=== PATIENT | female | born 1935 | race Caucasian/White ===

== ENCOUNTER 2017-09-15 21:52 | Inpatient (IN) | payer MEDICARE ==
[2017-09-15] MEDS ORDERED: SODIUM CHLORIDE 0.9% 500 ML IV ONE (22:16)
[2017-09-15] MEDS ORDERED: ACETAMINOPHEN 500 MG TABLET PO ONE (22:18)
--- NOTE | 2017-09-15 22:36 | Emergency Department Record ---
History of Present Illness - General Chief Complaint: Fever Stated Complaint: FEVER,CHILLS Time Seen by Provider: 09/15/17 22:12 Source: Patient Mode of Arrival: Ambulatory Limitations: No limitations - History of Present Illness Initial Comments: pt started running a fever today and having chills. she denies cough, ap, problems w urination or other symptoms. 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 MD Complaint: Fever, Malaise, Weakness, Other (chills) Onset/Timin -: Hour(s) Associated Symptoms: Denies other symptoms Treatments Prior to Arrival: None - Related Data Home Medications Medication Instructions Recorded Confirmed Last Taken Aspirin [Aspirin EC] 81 mg PO DAILY 09/15/17 09/15/17 Unknown Fenofibrate Nanocrystallized 145 mg PO DAILY 09/15/17 09/15/17 Unknown [Tricor] Hydrochlorothiazide [Hctz] 25 mg PO DAILY 09/15/17 09/15/17 Unknown Metformin HCl [Metformin HCl ER] 1,000 mg PO DAILY 09/15/17 09/15/17 Unknown Metoprolol Succinate [Toprol Xl] 50 mg PO DAILY 09/15/17 09/15/17 Unknown [place]-3 Fatty Acids [[place]-3] 1,000 mg PO DAILY 09/15/17 09/15/17 Unknown Simvastatin [Zocor] 10 mg PO QHS 09/15/17 09/15/17 Unknown Allergies Allergy/AdvReac Type Severity Reaction Status Date / Time Latex, Natural Rubber Allergy RASH Verified 09/15/17 22:14 Travel Screening - Travel/Exposure Within Last 30 Days Have you traveled within the last 30 days?: No - Travel Symptoms Symptom Screening: Fever (GT 100.4) Review of Systems Reviewed: No additional complaints except as noted below Constitutional: Reports: As per HPI, Chills, Fever, Malaise. Denies: Night sweats, Weakness, Weight change Eyes: Reports: As per HPI. Denies: Eye discharge, Eye pain, Photophobia, Vision change ENT: Reports: As per HPI. Denies: Congestion, Dental pain, Ear pain, Epistaxis , Hearing loss, Throat pain Respiratory: Reports: As per HPI. Denies: Cough, Dyspnea, Hemoptysis, Stridor, Wheezes Cardiovascular: Reports: As per HPI. Denies: Arrhythmia, Chest pain, Dyspnea on exertion, Edema, Murmurs, Orthopnea, Palpitations, Paroxysmal nocturnal dyspnea, Rheumatic Fever, Syncope Endocrine: Reports: As per HPI. Denies: Fatigue, Heat or cold intolerance, Polydipsia, Polyuria Gastrointestinal: Reports: As per HPI. Denies: Abdominal pain, Constipation, Diarrhea, Hematemesis, Hematochezia, Melena, Nausea, Vomiting Genitourinary: Reports: As per HPI. Denies: Abnormal menses, Discharge, Dyspareunia, Dysuria, Frequency, Hematuria, Incontinence, Retention, Urgency Musculoskeletal: Reports: As per HPI. Denies: Arthralgia, Back pain, Gout, Joint swelling, Myalgia, Neck pain Skin: Reports: As per HPI. Denies: Bruising, Change in color, Change in hair/ nails, Lesions, Pruritus, Rash Neurological: Reports: As per HPI. Denies: Abnormal gait, Confusion, Headache, Numbness, Paresthesias, Seizure, Tingling, Tremors, Vertigo, Weakness Psychiatric: Reports: As per HPI. Denies: Anxiety, Auditory hallucinations, Depression, Homicidal thoughts, Suicidal thoughts, Visual hallucinations Hematological/Lymphatic: Reports: As per HPI. Denies: Anemia, Blood Clots, Easy bleeding, Easy bruising, Swollen glands Past Medical History - SOCIAL HISTORY Smoking Status: Never smoker Alcohol Use: None Drug Use: None - RESPIRATORY Hx Respiratory Disorders: No - CARDIOVASCULAR Hx Cardio Disorders: Yes Hx Hypertension: Yes Comment:: high cholesterol - NEURO Hx Neuro Disorders: No - GI Hx GI Disorders: No - Hx Genitourinary Disorders: Yes Hx UTI: Yes - ENDOCRINE Hx Endocrine Disorders: Yes Hx Diabetes: Yes - MUSCULOSKELETAL Hx Musculoskeletal Disorders: Yes Hx Arthritis: Yes - PSYCH Hx Psych Problems: No - HEMATOLOGY/ONCOLOGY Hx Hematology/Oncology Disorders: No Family Medical History Any Significant Family History?: No Family Hx Comment (NOT TO BE USED IN PLACE OF ITEMS BELOW): denies Physical Exam - General General Appearance: Alert, Oriented x3, Cooperative, Mild distress - Head Head exam: Normal inspection - Eye Eye exam: Normal appearance, PERRL, EOMI Pupils: Normal accommodation - ENT ENT exam: Normal exam, Mucous membranes dry, Normal external ear exam, Normal orophraynx Ear exam: Normal external inspection. negative: External canal tenderness Nasal Exam: Normal inspection. negative: Discharge, Sinus tenderness Mouth exam: Normal external inspection, Tongue normal Teeth exam: Normal inspection. negative: Dental caries Throat exam: Tonsillar erythema. negative: Tonsillar exudate - Neck Neck exam: Normal inspection, Full ROM. negative: Tenderness - Respiratory Respiratory exam: Normal lung sounds bilaterally. negative: Respiratory distress - Cardiovascular Cardiovascular Exam: Normal rhythm, Normal heart sounds, Tachycardia - GI/Abdominal GI/Abdominal exam: Soft, Normal bowel sounds. negative: Tenderness - Rectal Rectal exam: Deferred - exam: Deferred - Extremities Extremities exam: Normal inspection, Full ROM, Normal capillary refill. negative: Tenderness - Back Back exam: Reports: Normal inspection, Full ROM. Denies: Muscle spasm, Rash noted, Tenderness - Neurological Neurological exam: Alert, CN II-XII intact, Normal gait, Oriented X3 - Psychiatric Psychiatric exam: Normal affect, Normal mood - Skin Skin exam: Dry, Intact, Normal color, Warm Course Vital Signs 09/15/17 22:06 Temperature 102.9 F H Pulse Rate 121 H Respiratory 28 H Rate Blood Pressure 148/82 Pulse Ox 94 L Medical Decision Making - Lab Data Result diagrams: 09/15/17 22:13 09/15/17 22:13 Disposition Disposition: Admit Clinical Impression: Pyelonephritis Pneumonia Qualifiers: Pneumonia type: due to unspecified organism Laterality: bilateral Lung location : unspecified part of lung Qualified Code(s): J18.9 - Pneumonia, unspecified organism Disposition: Still a Patient at [facility] Decision to Admit: Admit from ER Decision to Admit Date: 09/16/17 Decision to Admit Time: 00:22 Forms: Patient Portal Access Quality - Quality Measures Quality Measures: N/A - Blood Pressure Screening Does Patient Have Any of the Following: No Blood Pressure Classification: Pre-Hypertensive BP Reading Systolic Measurement: 148 Diastolic Measurement: 82 Screening for High Blood Pressure: < Pre-Hypertensive BP, F/U Documented > [ [id number]] Pre-Hypertensive Follow-up Interventions: Follow-up with rescreen every year.
[2017-09-15 22:37] LABS: BASO % 0.4 % (0-6); EOS % 1.3 % (0-6); GRAN % 72.8 % (47-80); HEMATOCRIT 37.7 % (35.0-47.0); HEMOGLOBIN 12.1 gm/dl (11.6-16.0); LYMPH % 24.6 % (16-45); MEAN CELL VOLUME 85.7 fl (81-97); MEAN CORPUSCULAR HEMOGLOBIN 27.5 pg (27-33); MEAN CORPUSCULAR HGB CONC 32.1 g/dl (32-36); MEAN PLATELET VOLUME 10.7 fl (7.4-10.4); MONO % 0.9 % (0-9); PLATELET COUNT 259 K/uL (130-400); RED CELL DISTRIBUTION WIDTH 13.4 % (11.5-14.5); WHITE BLOOD COUNT W/O DIFF 2.3 K/uL (4.2-12.2)
[2017-09-15 22:53] LABS: URINE APPEARANCE CLEAR; URINE BILIRUBIN NEGATIVE (NEGATIVE); URINE BLOOD TRACE-I (NEGATIVE); URINE COLOR YELLOW; URINE GLUCOSE (UA) NEGATIVE (NEGATIVE); URINE KETONE NEGATIVE (NEGATIVE); URINE LEUKOCYTE ESTERASE LARGE (NEGATIVE); URINE NITRITE POSITIVE (NEGATIVE); URINE PROTEIN NEGATIVE (NEGATIVE)
[2017-09-15 23:24] LABS: INFLUENZA A NEGATIVE (NEGATIVE); INFLUENZA B NEGATIVE (NEGATIVE)
[2017-09-15 23:29] LABS: ALB/GLOB RATIO 1.7 (1.1-1.8); ALKALINE PHOSPHATASE 64 U/L (35-104); ALT/SGPT 23 U/L (<33); AST/SGOT 53 U/L (10.0-35.0); BLOOD UREA NITROGEN 19 mg/dL (8-23); CREATININE 0.9 mg/dL (0.5-0.9); EST GLOMERULAR FILTRATION RATE > 60 mL/min; GLUCOSE,RANDOM 123 mg/dL (74-109); TOTAL PROTEIN 6.4 g/dL (6.6-8.7)
[2017-09-15 23:47] LABS: URINE RBC 0 - 2 (NONE SEEN)
[2017-09-15 23:48] LABS: URINE BACTERIA 4+; URINE EPITHELIAL CELLS NONE SEEN (FEW); URINE WBC 16 - 20 (0-2/hpf)
[2017-09-16] MEDS ORDERED: CIPROFLOXACIN LACTATE/D5W 400 MG/200 ML BAG IVPB ONE (00:03)
[2017-09-16] MEDS ORDERED: ACETAMINOPHEN 500 MG TABLET PO PRN (00:30)
[2017-09-16] MEDS: SIMVASTATIN 10MG TABLET PO SCH ×2 (01:23→21:53)
[2017-09-16 08:39] LABS: HEMATOCRIT 33.9 % (35.0-47.0); MEAN CORPUSCULAR HEMOGLOBIN 27.9 pg (27-33); MEAN CORPUSCULAR HGB CONC 32.4 g/dl (32-36); MEAN PLATELET VOLUME 10.4 fl (7.4-10.4); PLATELET COUNT 238 K/uL (130-400); RED BLOOD COUNT 3.94 M/uL (3.80-5.40); RED CELL DISTRIBUTION WIDTH 13.6 % (11.5-14.5)
--- NOTE | 2017-09-16 08:39 | History & Physical ---
History of Present Illness - Date of Service Date of Service for History & Physical: 09/16/17 - History of Present Illness Admitting Diagnosis: pyelonephritis, lactic acidosis, and pneumonia History of Present Illness: 82 yo female admitted for PNA and pyelonephritis. PMH DM, HTN, and hyperlipidemia. Pt denies any symptoms prior to onset of fever and chills. 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 No known ill contacts, not around infants or young children. Pt presented self to ER for c/o fever and chills but denied symptoms of ST, cough, CP, AP, or dysuria. Negative flu and strep screening. 102.9F, HR 121, 148/82, RR 28, 94% RA, repeat VS 1 hr later temp 99.8 after 500cc bolus and tylenol, then 2 hours later 99.4, HR 100, BP 119/70, RR 18, 95% RA UA pos nitrites, leuk large, 4+ bacteria, WBC 16-20, no RBC, urine culture pending WBC 2.3, Hgb 12.1, Hct 37.7, Plt 259 Na 146, K 3.7, CL 103, CO2 24, BUN 19, creatinine 0.9, GFR >60, glucose 123, lactic acid 3.4 CXR (no report, no audio clip available) Pt given 500cc NS bolus, cipro 400mg IVPB and 1gm tylenol POC Repeat labs ordered this AM (CBC, bmp, lactic acid) NS IVF @83 started, continue to encourage PO intact. Continue Cipro 400mg q12 hr. Pt resting comfortably in bed, a&ox4. Continues to deny dysuria symptoms, no cough, no SOB, no pain. Ambulating to toilet without difficulty. Awaiting CXR official read. PCP Rachel Travel Screening - Travel/Exposure Within Last 30 Days Have you traveled within the last 30 days?: No - Travel/Exposure Within Last Year Have you traveled outside the [place] in the last year?: No - Additonal Travel Details Have you been exposed to anyone with a communicable illness?: No - Travel Symptoms Symptom Screening: Fever (GT 100.4) Review of Systems Constitutional: Reports: As per HPI, Chills, Fever, Malaise. Denies: Night sweats, Weakness, Weight change Eyes: Reports: As per HPI. Denies: Eye discharge, Eye pain, Photophobia, Vision change ENT: Reports: As per HPI. Denies: Congestion, Dental pain, Ear pain, Epistaxis , Hearing loss, Throat pain Respiratory: Reports: As per HPI. Denies: Cough, Dyspnea, Hemoptysis, Stridor, Wheezes Cardiovascular: Reports: As per HPI. Denies: Arrhythmia, Chest pain, Dyspnea on exertion, Edema, Murmurs, Orthopnea, Palpitations, Paroxysmal nocturnal dyspnea, Rheumatic Fever, Syncope Endocrine: Reports: As per HPI. Denies: Fatigue, Heat or cold intolerance, Polydipsia, Polyuria Gastrointestinal: Reports: As per HPI. Denies: Abdominal pain, Constipation, Diarrhea, Hematemesis, Hematochezia, Melena, Nausea, Vomiting Genitourinary: Reports: As per HPI. Denies: Abnormal menses, Discharge, Dyspareunia, Dysuria, Frequency, Hematuria, Incontinence, Retention, Urgency Musculoskeletal: Reports: As per HPI. Denies: Arthralgia, Back pain, Gout, Joint swelling, Myalgia, Neck pain Skin: Reports: As per HPI. Denies: Bruising, Change in color, Change in hair/ nails, Lesions, Pruritus, Rash Neurological: Reports: As per HPI. Denies: Abnormal gait, Confusion, Headache, Numbness, Paresthesias, Seizure, Tingling, Tremors, Vertigo, Weakness Psychiatric: Reports: As per HPI. Denies: Anxiety, Auditory hallucinations, Depression, Homicidal thoughts, Suicidal thoughts, Visual hallucinations Hematological/Lymphatic: Reports: As per HPI. Denies: Anemia, Blood Clots, Easy bleeding, Easy bruising, Swollen glands Past Medical History - SOCIAL HISTORY Smoking Status: Never smoker Alcohol Use: None Drug Use: None - RESPIRATORY Hx Respiratory Disorders: No - CARDIOVASCULAR Hx Cardio Disorders: Yes Hx Hypertension: Yes Comment:: high cholesterol - NEURO Hx Neuro Disorders: No - GI Hx GI Disorders: No - Hx Genitourinary Disorders: Yes Hx UTI: Yes - ENDOCRINE Hx Endocrine Disorders: Yes Hx Diabetes: Yes - MUSCULOSKELETAL Hx Musculoskeletal Disorders: Yes Hx Arthritis: Yes - PSYCH Hx Psych Problems: No - HEMATOLOGY/ONCOLOGY Hx Hematology/Oncology Disorders: No Family Medical History Any Significant Family History?: No Family Hx Comment (NOT TO BE USED IN PLACE OF ITEMS BELOW): denies H&P Meds/Allergies - Allergies Allergies: Allergies Allergy/AdvReac Type Severity Reaction Status Date / Time Latex, Natural Rubber Allergy RASH Verified 09/15/17 22:14 - Home Medications Home Medications Medication Instructions Recorded Confirmed Last Taken Aspirin [Aspirin EC] 81 mg PO DAILY 09/15/17 09/15/17 Unknown Fenofibrate Nanocrystallized 145 mg PO DAILY 09/15/17 09/15/17 Unknown [Tricor] Hydrochlorothiazide [Hctz] 25 mg PO DAILY 09/15/17 09/15/17 Unknown Metformin HCl [Metformin HCl ER] 1,000 mg PO DAILY 09/15/17 09/15/17 Unknown Metoprolol Succinate [Toprol Xl] 50 mg PO DAILY 09/15/17 09/15/17 Unknown [place]-3 Fatty Acids [[place]-3] 1,000 mg PO DAILY 09/15/17 09/15/17 Unknown Simvastatin [Zocor] 10 mg PO QHS 09/15/17 09/15/17 Unknown - Active Medications Active Medications: Current Medications Acetaminophen (Tylenol 500mg Tab) 1,000 mg PO Q6H PRN PRN Reason: PAIN - MILD(1-4)/FEVER Aspirin (Ecotrin (Ec)) 81 mg PO DAILY [facility] Hydrochlorothiazide (Hctz 25mg) 25 mg PO DAILY [facility] Ciprofloxacin Lactate (Cipro) 400 mg in 200 mls @ 200 mls/hr IVPB Q12H [facility] Stop: 09/21/17 12:01 Metformin HCl (Glucophage Xr) 1,000 mg PO DAILY [facility] Metoprolol Succinate (Toprol Xl) 50 mg PO DAILY [facility] Non-Formulary Medication (Fenofibrate Nanocrystallized [Tricor]) 145 mg PO DAILY [facility] Simvastatin (Zocor) 10 mg PO QHS [facility] Last Admin: 09/16/17 01:23 Dose: Not Given Physical Exam - Vital Signs Vital Signs: Vital Signs - Last 24 Hrs Temp Pulse Pulse Resp BP BP BP 09/16/17 06:00 98.7 F 96 H 20 104/71 09/16/17 01:13 102 H 20 09/16/17 00:50 98.4 F 102 H 20 109/67 09/16/17 00:40 99.4 F 100 H 18 119/70 09/16/17 00:33 102 H 24 104/67 09/15/17 23:05 99.8 F H 09/15/17 22:06 102.9 F H 121 H 28 H 148/82 Pulse Ox 09/16/17 06:00 96 09/16/17 01:13 09/16/17 00:50 95 09/16/17 00:40 95 09/16/17 00:33 94 L 09/15/17 23:05 09/15/17 22:06 94 L - General General Appearance: Alert, Oriented x3, Cooperative, No acute distress Limitations: No limitations - Head Head exam: Normal inspection - Eye Eye exam: Normal appearance, PERRL, EOMI Pupils: Normal accommodation - ENT ENT exam: Normal exam, Mucous membranes dry, Normal external ear exam, Normal orophraynx Ear exam: Normal external inspection. negative: External canal tenderness Nasal Exam: Normal inspection. negative: Discharge, Sinus tenderness Mouth exam: Normal external inspection, Tongue normal Teeth exam: Normal inspection. negative: Dental caries Throat exam: Tonsillar erythema. negative: Tonsillar exudate - Neck Neck exam: Normal inspection, Full ROM. negative: Tenderness - Respiratory Respiratory exam: Normal lung sounds bilaterally. negative: Respiratory distress - Cardiovascular Cardiovascular Exam: Regular rate, Normal rhythm, Normal heart sounds Peripheral Pulses: 2+: Radial (R), Radial (L), Dorsalis Pedis (R), Dorsalis Pedis (L) - GI/Abdominal GI/Abdominal exam: Soft, Normal bowel sounds. negative: Tenderness - Rectal Rectal exam: Deferred - exam: Deferred - Extremities Extremities exam: Normal inspection, Full ROM, Normal capillary refill. negative: Tenderness - Back Back exam: Reports: Normal inspection, Full ROM. Denies: CVA tenderness (R), CVA tenderness (L), Muscle spasm, Rash noted, Tenderness - Neurological Neurological exam: Alert, CN II-XII intact, Normal gait, Oriented X3 - Psychiatric Psychiatric exam: Normal affect, Normal mood - Skin Skin exam: Dry, Intact, Normal color, Warm Results - Labs Result Diagrams: 09/15/17 22:13 09/15/17 22:13 Labs Last 24 Hours: Laboratory Results - last 24 hr 09/15/17 09/15/17 09/15/17 10:50 10:50 22:13 WBC 2.3 L RBC 4.40 Hgb 12.1 Hct 37.7 MCV 85.7 MCH 27.5 MCHC 32.1 RDW 13.4 Plt Count 259 MPV 10.7 H Gran % 72.8 Lymphocytes % 24.6 Monocytes % 0.9 Eosinophils % 1.3 Basophils % 0.4 ESR Sodium Potassium Chloride Carbon Dioxide Anion Gap BUN Creatinine Estimated GFR Random Glucose Lactic Acid Calcium Total Bilirubin AST ALT Alkaline Phosphatase Total Protein Albumin Globulin Albumin/Globulin Ratio Urine Color Urine Appearance Urine pH Ur Specific [place] Urine Protein Urine Glucose (UA) Urine Ketones Urine Blood Urine Nitrite Urine Bilirubin Urine Urobilinogen Ur Leukocyte Esterase Urine RBC Urine WBC Ur Epithelial Cells Urine Bacteria Influenza Type A Ag Negative Influenza Type B Ag Negative Group A Strep Screen Negative 09/15/17 09/15/17 09/15/17 22:13 22:13 22:16 WBC RBC Hgb Hct MCV MCH MCHC RDW Plt Count MPV Gran % Lymphocytes % Monocytes % Eosinophils % Basophils % ESR 5 Sodium 146 H Potassium 3.7 Chloride 103 Carbon Dioxide 24.0 Anion Gap 19.0 H BUN 19 Creatinine 0.9 Estimated GFR > 60 Random Glucose 123 H Lactic Acid Cancelled Calcium 9.6 Total Bilirubin 0.60 AST 53 H ALT 23 Alkaline Phosphatase 64 Total Protein 6.4 L Albumin 4.0 Globulin 2.4 Albumin/Globulin Ratio 1.7 Urine Color Yellow Urine Appearance Clear Urine pH 7.0 Ur Specific [place] 1.010 Urine Protein Negative Urine Glucose (UA) Negative Urine Ketones Negative Urine Blood Trace-i Urine Nitrite Positive H Urine Bilirubin Negative Urine Urobilinogen 1.0 Ur Leukocyte Esterase Large H Urine RBC 0 - 2 Urine WBC 16 - 20 Ur Epithelial Cells None seen Urine Bacteria 4+ Influenza Type A Ag Influenza Type B Ag Group A Strep Screen 09/15/17 22:37 WBC RBC Hgb Hct MCV MCH MCHC RDW Plt Count MPV Gran % Lymphocytes % Monocytes % Eosinophils % Basophils % ESR Sodium Potassium Chloride Carbon Dioxide Anion Gap BUN Creatinine Estimated GFR Random Glucose Lactic Acid 3.4 H Calcium Total Bilirubin AST ALT Alkaline Phosphatase Total Protein Albumin Globulin Albumin/Globulin Ratio Urine Color Urine Appearance Urine pH Ur Specific [place] Urine Protein Urine Glucose (UA) Urine Ketones Urine Blood Urine Nitrite Urine Bilirubin Urine Urobilinogen Ur Leukocyte Esterase Urine RBC Urine WBC Ur Epithelial Cells Urine Bacteria Influenza Type A Ag Influenza Type B Ag Group A Strep Screen - Imaging and Cardiology Chest x-ray Status: Pending VTE H&P Assessment - Risk for VTE Risk for VTE: Yes Risk Level: Moderate Risk Assessment Date: 09/16/17 Risk Assessment Time: 08:44 VTE Orders Placed or Will Be Placed: Yes Plan - Inpatient Certification Inpatient Certification: Admit to inpatient care: Based on my medical assessment, after consideration of patient's risk factors (age, co-morbidities and patient presenting symptoms and acuity), I expect that this patient will remain in the hospital greater than or equal to two midnights and that the services needed warrant inpatient care because: Patient Risk Factors: pyleonephritis, PNA, and lactic acidosis, req IV ABX, Estimated length of stay: The patient may reasonably be expected to be discharged or transferred to a hospital within 96 hours after admission to [facility]. Services needed: IVF, IV abx, repeat labs Post hospital care (if known): [] I certify that my determination is in accordance with my understanding of Medicare requirements for reasonable and necessary inpatient services. 09/16/17 08:44 - Detailed Diagnosis and Plan (1) Pyelonephritis Current Visit: Yes Status: Acute Base Code: N12 - TUBULO-INTERSTITIAL NEPHRITIS, NOT SPCF ACUTE OR CHRONIC Comment: 09/16/17 -UA positive, culture pending -Cipro 400mg q12 -IVF NS@83 -repeat CBC, BMP, lactic acid (2) Pneumonia Current Visit: Yes Status: Acute Qualifiers: Pneumonia type: due to unspecified organism Laterality: bilateral Lung location: unspecified part of lung Qualified Code(s): J18.9 - Pneumonia, unspecified organism Base Code: J18.9 - PNEUMONIA, UNSPECIFIED ORGANISM Comment: 09/16/17 -suspected PNA based on CXR reading from ER, no c/o s/s -co-infection with pyelonephritis -no cough, lungs clear gumaro, no known sick contacts -Continue with Cipro 400mg IVPB (current pyleo tx) (3) Full code status Current Visit: Yes Status: Acute Base Code: Z78.9 - OTHER SPECIFIED HEALTH STATUS Comment: 09/16/17 -full code status (4) DVT prophylaxis Current Visit: Yes Status: Acute Base Code: NXA2163 - Comment: 09/16/17 -lovenox 40mg SQ DVT proph (5) Lactic acid acidosis Current Visit: Yes Status: Acute Base Code: E87.2 - ACIDOSIS Comment: 09/16 -lactic acid 3.4 at admission, repeat 3.1 -IVF started this AM, will repeat in the AM -holding metformin r/t decreased RFT and continued elevated lactic acid
[2017-09-16] MEDS: 0.9 % SODIUM CHLORIDE 1000ML 1,000 ML IV PRN ×2 (09:00→21:50)
[2017-09-16] MEDS: ASPIRIN 81 MG TABEC PO SCH (09:27)
[2017-09-16] MEDS: HYDROCHLOROTHIAZIDE 25 MG TABLET PO SCH (09:27)
[2017-09-16] MEDS: METFORMIN ER HCL 500 MG TAB.ER.24H PO SCH (09:27)
[2017-09-16] MEDS: METOPROLOL SUCC 50 MG TABLET PO SCH (09:27)
[2017-09-16] MEDS: ENOXAPARIN 40 MG/0.4 ML SYR SQ SCH (09:29)
[2017-09-16] MEDS ORDERED: FENOFIBRATE NANOCRYSTALLIZED 145 MG PO SCH (10:00)
[2017-09-16] MEDS: CIPROFLOXACIN LACTATE/D5W 400 MG/200 ML BAG IVPB SCH ×2 (12:11→23:15)
[2017-09-17 08:24] LABS: HEMOGLOBIN 10.7 gm/dl (11.6-16.0); MEAN CELL VOLUME 86.2 fl (81-97); MEAN CORPUSCULAR HEMOGLOBIN 27.9 pg (27-33); MEAN CORPUSCULAR HGB CONC 32.4 g/dl (32-36); MEAN PLATELET VOLUME 10.5 fl (7.4-10.4); PLATELET COUNT 213 K/uL (130-400); RED BLOOD COUNT 3.83 M/uL (3.80-5.40); RED CELL DISTRIBUTION WIDTH 13.8 % (11.5-14.5); WHITE BLOOD COUNT W/O DIFF 12.9 K/uL (4.2-12.2)
[2017-09-17 08:45] LABS: BLOOD UREA NITROGEN 18 mg/dL (8-23); CREATININE 0.9 mg/dL (0.5-0.9); EST GLOMERULAR FILTRATION RATE > 60 mL/min; GLUCOSE,RANDOM 124 mg/dL (74-109)
--- NOTE | 2017-09-17 09:52 | Physician Progress Note ---
Subjective - Date Date of Physician Progress Note: 09/17/17 Objective - Vital Signs Vital Signs: Vital Signs - Last 24 Hrs Temp Pulse Resp BP Pulse Ox 09/17/17 08:25 87 16 09/17/17 05:53 98.2 F 87 16 126/73 09/16/17 21:27 98.0 F 79 16 127/59 95 09/16/17 21:00 79 16 09/16/17 18:00 98.3 F 84 16 122/74 97 09/16/17 13:17 98.1 F 73 18 102/61 97 - General General Appearance: Alert, Oriented x3, Cooperative, No acute distress Limitations: No limitations - Head Head exam: Normal inspection - Eye Eye exam: Normal appearance, PERRL, EOMI Pupils: Normal accommodation - ENT ENT exam: Normal exam, Mucous membranes dry, Normal external ear exam, Normal orophraynx Ear exam: Normal external inspection. negative: External canal tenderness Nasal Exam: Normal inspection. negative: Discharge, Sinus tenderness Mouth exam: Normal external inspection, Tongue normal Teeth exam: Normal inspection. negative: Dental caries Throat exam: Tonsillar erythema. negative: Tonsillar exudate - Neck Neck exam: Normal inspection, Full ROM. negative: Tenderness - Respiratory Respiratory exam: Normal lung sounds bilaterally. negative: Respiratory distress - Cardiovascular Cardiovascular Exam: Regular rate, Normal rhythm, Normal heart sounds Peripheral Pulses: 2+: Radial (R), Radial (L), Dorsalis Pedis (R), Dorsalis Pedis (L) - GI/Abdominal GI/Abdominal exam: Soft, Normal bowel sounds. negative: Tenderness - Rectal Rectal exam: Deferred - exam: Deferred - Extremities Extremities exam: Normal inspection, Full ROM, Normal capillary refill. negative: Tenderness - Back Back exam: Reports: Normal inspection, Full ROM. Denies: CVA tenderness (R), CVA tenderness (L), Muscle spasm, Rash noted, Tenderness - Neurological Neurological exam: Alert, CN II-XII intact, Normal gait, Oriented X3 - Psychiatric Psychiatric exam: Normal affect, Normal mood - Skin Skin exam: Dry, Intact, Normal color, Warm Assessment and Plan - Assessment and Plan (1) Pyelonephritis Current Visit: Yes Status: Acute Base Code: N12 - TUBULO-INTERSTITIAL NEPHRITIS, NOT SPCF ACUTE OR CHRONIC Comment: 09/16/17 -UA positive, culture pending -Cipro 400mg q12 -IVF NS@83 -repeat CBC, BMP, lactic acid 09/17/17 -blood culture preliminary results, gram negative rods (suspicitous of E Coli sepsis) -changing ABX from cipro to Rocephin 1gm BID for better coverage as sensitivity pending -urine culture still pending, will continue to monitor for results -labs have improved, WBC 12.1, lactic acid 0.9, RFT normal -continue ABX and IVF slowly -possible d/c in the AM if continuing to improve -pt req daughter Christi be updated on POC, Christi notified [phone] per pt req (2) Lactic acid acidosis Current Visit: Yes Status: Acute Base Code: E87.2 - ACIDOSIS Comment: 09/16 -lactic acid 3.4 at admission, repeat 3.1 -IVF started this AM, will repeat in the AM -holding metformin r/t decreased RFT and continued elevated lactic acid 09/17/17 -lactic acid 0.9 -IVF continue until tomorow, pt tolerating with no edema noted -preliminary BC gram neg lyndsay, suspicious of E Coli sepsis (3) Pneumonia Current Visit: Yes Status: Inactive Qualifiers: Pneumonia type: due to unspecified organism Laterality: bilateral Lung location: unspecified part of lung Qualified Code(s): J18.9 - Pneumonia, unspecified organism Base Code: J18.9 - PNEUMONIA, UNSPECIFIED ORGANISM Comment: 09/16/17 -suspected PNA based on CXR reading from ER, no c/o s/s -co-infection with pyelonephritis -no cough, lungs clear gumaro, no known sick contacts -Continue with Cipro 400mg IVPB (current pyleo tx) (4) Full code status Current Visit: Yes Status: Acute Base Code: Z78.9 - OTHER SPECIFIED HEALTH STATUS Comment: 09/16/17 -full code status (5) DVT prophylaxis Current Visit: Yes Status: Acute Base Code: OHC8596 - Comment: 09/17/17 -lovenox 40mg SQ DVT proph Results - Labs Result Diagrams: 09/17/17 08:15 09/17/17 08:15 Labs Last 24 Hours: Laboratory Results - last 24 hr 09/16/17 09/16/17 09/17/17 11:30 22:48 07:30 WBC RBC Hgb Hct MCV MCH MCHC RDW Plt Count MPV Neutrophils % Band Neutrophils % Eosinophils % Basophils % Lymphocytes Monocytes Eosinophil Count Sodium Potassium Chloride Carbon Dioxide Anion Gap BUN Creatinine Estimated GFR POC Glucose 156 H 140 H 113 H Random Glucose Lactic Acid Calcium 09/17/1718 09/17/17 08:15 08:15 08:15 WBC 12.9 H RBC 3.83 Hgb 10.7 L Hct 33.0 L MCV 86.2 MCH 27.9 MCHC 32.4 RDW 13.8 Plt Count 213 MPV 10.5 H Neutrophils % 80.0 Band Neutrophils % 3.0 Eosinophils % Not Reportable Basophils % Not Reportable Lymphocytes 11.0 L Monocytes 5.0 Eosinophil Count 1.0 Sodium 141 Potassium 3.6 Chloride 102 Carbon Dioxide 23.0 Anion Gap 16.0 BUN 18 Creatinine 0.9 Estimated GFR > 60 POC Glucose Random Glucose 124 H Lactic Acid Cancelled 0.9 Calcium 8.9 DVT/PE Assessment - Risk for VTE Risk for VTE: No Risk Level: Moderate Risk Assessment Date: 09/16/17 Risk Assessment Time: 08:44 VTE Orders Placed or Will Be Placed: Yes - Active Medicaitons Current Medications: Current Medications Acetaminophen (Tylenol 500mg Tab) 1,000 mg PO Q6H PRN PRN Reason: PAIN - MILD(1-4)/FEVER Aspirin (Ecotrin (Ec)) 81 mg PO DAILY [facility] Last Admin: 09/16/17 09:27 Dose: 81 mg Enoxaparin Sodium (Lovenox) 40 mg SQ DAILY [facility] Last Admin: 09/16/17 09:29 Dose: 40 mg Hydrochlorothiazide (Hctz 25mg) 25 mg PO DAILY [facility] Last Admin: 09/16/17 09:27 Dose: 25 mg Sodium Chloride () 1,000 mls @ 83 mls/hr IV .Q12H3M PRN PRN Reason: LARGE VOLUME IV Last Admin: 09/16/17 21:50 Dose: 83 mls/hr Ceftriaxone Sodium 1 gm/ (Sodium Chloride) 100 mls @ 200 mls/hr IVPB Q12H [facility] Stop: 09/22/17 09:31 Metformin HCl (Glucophage Xr) 1,000 mg PO DAILY [facility] Last Admin: 09/16/17 09:27 Dose: Not Given Metoprolol Succinate (Toprol Xl) 50 mg PO DAILY [facility] Last Admin: 09/16/17 09:27 Dose: 50 mg Simvastatin (Zocor) 10 mg PO QHS [facility] Last Admin: 09/16/17 21:53 Dose: 10 mg AMI Plan - Labs Result Diagrams: 09/17/17 08:15 09/17/17 08:15
[2017-09-17] MEDS: CEFTRIAXONE SODIUM 1 GM in 0.9 % SODIUM CHLORIDE 100ML 100 ML IVPB SCH ×2 (10:02→21:42)
[2017-09-17] MEDS: HYDROCHLOROTHIAZIDE 25 MG TABLET PO SCH (10:03)
[2017-09-17] MEDS: ASPIRIN 81 MG TABEC PO SCH (10:03)
[2017-09-17] MEDS: METFORMIN ER HCL 500 MG TAB.ER.24H PO SCH (10:03)
[2017-09-17] MEDS: METOPROLOL SUCC 50 MG TABLET PO SCH (10:03)
[2017-09-17] MEDS: ENOXAPARIN 40 MG/0.4 ML SYR SQ SCH (10:04)
[2017-09-17] MEDS: 0.9 % SODIUM CHLORIDE 1000ML 1,000 ML IV PRN (12:41)
[2017-09-17] MEDS: SIMVASTATIN 10MG TABLET PO SCH (21:42)
[2017-09-18] MEDS: 0.9 % SODIUM CHLORIDE 1000ML 1,000 ML IV PRN (00:17)
[2017-09-18] MEDS: CEFTRIAXONE SODIUM 1 GM in 0.9 % SODIUM CHLORIDE 100ML 100 ML IVPB SCH (09:09)
[2017-09-18] MEDS: ENOXAPARIN 40 MG/0.4 ML SYR SQ SCH (09:13)
[2017-09-18] MEDS: METOPROLOL SUCC 50 MG TABLET PO SCH (09:14)
[2017-09-18] MEDS: HYDROCHLOROTHIAZIDE 25 MG TABLET PO SCH (09:14)
[2017-09-18] MEDS: ASPIRIN 81 MG TABEC PO SCH (09:14)
[2017-09-18 09:50] LABS: BASO % 0.3 % (0-6); EOS % 4.9 % (0-6); GRAN % 60.5 % (47-80); HEMATOCRIT 32.7 % (35.0-47.0); HEMOGLOBIN 10.6 gm/dl (11.6-16.0); LYMPH % 26.3 % (16-45); MEAN CELL VOLUME 86.1 fl (81-97); MEAN CORPUSCULAR HGB CONC 32.4 g/dl (32-36); MEAN PLATELET VOLUME 10.6 fl (7.4-10.4); PLATELET COUNT 218 K/uL (130-400); RED CELL DISTRIBUTION WIDTH 13.6 % (11.5-14.5); WHITE BLOOD COUNT W/O DIFF 7.2 K/uL (4.2-12.2)
[2017-09-18 09:53] LABS: MEAN CORPUSCULAR HEMOGLOBIN 27.8 pg (27-33)
[2017-09-18 10:07] LABS: BLOOD UREA NITROGEN 15 mg/dL (8-23); CREATININE 0.7 mg/dL (0.5-0.9); EST GLOMERULAR FILTRATION RATE > 60 mL/min; GLUCOSE,RANDOM 173 mg/dL (74-109)
--- NOTE | 2017-09-18 10:29 | Discharge Summary ---
Providers Discharge Summary Date: 09/18/17 Date of admission: 09/16/17 00:36 Expected Date of Discharge: 09/18/17 Attending physician: VENANCIO BRUNNER Primary care physician: Rachel Physical Exam - Vital Signs Vital Signs: Vital Signs - Last 24 Hrs Temp Pulse Resp BP Pulse Ox 09/18/17 09:00 80 18 09/18/17 08:53 98.1 F 91 H 18 136/75 95 09/18/17 06:00 98.9 F 87 20 146/70 95 09/18/17 02:00 79 20 138/87 95 09/17/17 21:00 98.7 F 80 20 157/79 97 09/17/17 14:00 98.6 F 77 18 137/72 97 - General General Appearance: Alert, Oriented x3, Cooperative, No acute distress Limitations: No limitations - Head Head exam: Normal inspection - Eye Eye exam: Normal appearance, PERRL, EOMI Pupils: Normal accommodation - ENT ENT exam: Normal exam, Mucous membranes dry, Normal external ear exam, Normal orophraynx Ear exam: Normal external inspection. negative: External canal tenderness Nasal Exam: Normal inspection. negative: Discharge, Sinus tenderness Mouth exam: Normal external inspection, Tongue normal Teeth exam: Normal inspection. negative: Dental caries Throat exam: Tonsillar erythema. negative: Tonsillar exudate - Neck Neck exam: Normal inspection, Full ROM. negative: Tenderness - Respiratory Respiratory exam: Normal lung sounds bilaterally. negative: Respiratory distress - Cardiovascular Cardiovascular Exam: Regular rate, Normal rhythm, Normal heart sounds, Systolic murmur Peripheral Pulses: 2+: Radial (R), Radial (L), Dorsalis Pedis (R), Dorsalis Pedis (L) - GI/Abdominal GI/Abdominal exam: Soft, Normal bowel sounds. negative: Tenderness - Rectal Rectal exam: Deferred - exam: Deferred - Extremities Extremities exam: Normal inspection, Full ROM, Normal capillary refill. negative: Tenderness - Back Back exam: Reports: Normal inspection, Full ROM. Denies: CVA tenderness (R), CVA tenderness (L), Muscle spasm, Rash noted, Tenderness - Neurological Neurological exam: Alert, CN II-XII intact, Normal gait, Oriented X3 - Psychiatric Psychiatric exam: Normal affect, Normal mood - Skin Skin exam: Dry, Intact, Normal color, Warm Hospitalization - Hospitalization Admission Diagnosis: pyelonephritis, lactic acidosis, and (pneumonia-ruled out) - Problem List/Discharge Diagnosis (1) Pyelonephritis Current Visit: Yes Status: Acute Base Code: N12 - TUBULO-INTERSTITIAL NEPHRITIS, NOT SPCF ACUTE OR CHRONIC Comment: 09/16/17 -UA positive, culture pending -Cipro 400mg q12 -IVF NS@83 -repeat CBC, BMP, lactic acid 09/17/17 -blood culture preliminary results, gram negative rods (suspicitous of E Coli sepsis) -changing ABX from cipro to Rocephin 1gm BID for better coverage as sensitivity pending -urine culture still pending, will continue to monitor for results -labs have improved, WBC 12.1, lactic acid 0.9, RFT normal -continue ABX and IVF slowly -possible d/c in the AM if continuing to improve -pt req daughter Christi be updated on POC, Christi notified [phone] per pt req 09/18/17 -WBC 7.2 -pt urine appears clear, still asymptomatic of dysuria -pt denies pain or discomfot -tolerating Po intake well, steady gait -d/c today (2) Lactic acid acidosis Current Visit: Yes Status: Acute Base Code: E87.2 - ACIDOSIS Comment: 09/16 -lactic acid 3.4 at admission, repeat 3.1 -IVF started this AM, will repeat in the AM -holding metformin r/t decreased RFT and continued elevated lactic acid 09/17/17 -lactic acid 0.9 -IVF continue until tomorow, pt tolerating with no edema noted -preliminary BC gram neg lyndsay, suspicious of E Coli sepsis 09/18/17 -d/c IVF -pt can return to her metformin at home -f/u with PCP (appt already made) (3) Full code status Current Visit: Yes Status: Acute Base Code: Z78.9 - OTHER SPECIFIED HEALTH STATUS Comment: 09/16/17 -full code status (4) DVT prophylaxis Current Visit: Yes Status: Acute Base Code: [id number] - Comment: 09/17/17 -lovenox 40mg SQ DVT proph - Hospitalization Course Hospital Course: 82 yo female admitted for PNA and pyelonephritis. PMH DM, HTN, and hyperlipidemia. Pt denies any symptoms prior to onset of fever and chills. 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 No known ill contacts, not around infants or young children. Pt presented self to ER for c/o fever and chills but denied symptoms of ST, cough, CP, AP, or dysuria. Negative flu and strep screening. 102.9F, HR 121, 148/82, RR 28, 94% RA, repeat VS 1 hr later temp 99.8 after 500cc bolus and tylenol, then 2 hours later 99.4, HR 100, BP 119/70, RR 18, 95% RA UA pos nitrites, leuk large, 4+ bacteria, WBC 16-20, no RBC, urine culture pending WBC 2.3, Hgb 12.1, Hct 37.7, Plt 259 Na 146, K 3.7, CL 103, CO2 24, BUN 19, creatinine 0.9, GFR >60, glucose 123, lactic acid 3.4 CXR (no report, no audio clip available) Pt given 500cc NS bolus, cipro 400mg IVPB and 1gm tylenol POC Repeat labs ordered this AM (CBC, bmp, lactic acid) NS IVF @83 started, continue to encourage PO intact. Continue Cipro 400mg q12 hr. Pt resting comfortably in bed, a&ox4. Continues to deny dysuria symptoms, no cough, no SOB, no pain. Ambulating to toilet without difficulty. Awaiting CXR official read. PCP Rachel Procedures: Imaging and X-Rays 09/15/17 22:16 CHEST 2 VIEWS [RAD] Stat Abnormal Labs: Abnormal Lab Results 09/15/17 09/15/17 09/15/17 Range/Units 22:13 22:13 22:16 WBC 2.3 L (4.2-12.2) K/uL Hgb (11.6-16.0) gm/dl Hct (35.0-47.0) % MPV 10.7 H (7.4-10.4) fl Neutrophils % (47-80) % Band Neutrophils % (0-5) % Lymphocytes (16-45) % Sodium 146 H (136-145) mmol/L Anion Gap 19.0 H (7-16) Creatinine (0.5-0.9) mg/dL POC Glucose (70-110) mg/dL Random Glucose 123 H (74-109) mg/dL Lactic Acid (0.5-2.2) mmol/L Calcium (8.8-10.2) mg/dL AST 53 H (10.0-35.0) U/L Total Protein 6.4 L (6.6-8.7) g/dL Urine Nitrite Positive H (NEGATIVE) Ur Leukocyte Esterase Large H (NEGATIVE) 09/15/17 09/16/17 09/16/17 Range/Units 22:37 07:30 08:20 WBC (4.2-12.2) K/uL Hgb (11.6-16.0) gm/dl Hct (35.0-47.0) % MPV (7.4-10.4) fl Neutrophils % (47-80) % Band Neutrophils % (0-5) % Lymphocytes (16-45) % Sodium (136-145) mmol/L Anion Gap (7-16) Creatinine (0.5-0.9) mg/dL POC Glucose 135 H (70-110) mg/dL Random Glucose (74-109) mg/dL Lactic Acid 3.4 H 3.1 H (0.5-2.2) mmol/L Calcium (8.8-10.2) mg/dL AST (10.0-35.0) U/L Total Protein (6.6-8.7) g/dL Urine Nitrite (NEGATIVE) Ur Leukocyte Esterase (NEGATIVE) 09/16/17 09/16/17 09/16/17 Range/Units 08:28 08:28 11:30 WBC 17.0 H (4.2-12.2) K/uL Hgb 11.0 L (11.6-16.0) gm/dl Hct 33.9 L (35.0-47.0) % MPV (7.4-10.4) fl Neutrophils % 85.0 H (47-80) % Band Neutrophils % 7.0 H (0-5) % Lymphocytes 6.0 L (16-45) % Sodium (136-145) mmol/L Anion Gap 18.0 H (7-16) Creatinine 1.0 H (0.5-0.9) mg/dL POC Glucose 156 H (70-110) mg/dL Random Glucose 164 H (74-109) mg/dL Lactic Acid (0.5-2.2) mmol/L Calcium (8.8-10.2) mg/dL AST (10.0-35.0) U/L Total Protein (6.6-8.7) g/dL Urine Nitrite (NEGATIVE) Ur Leukocyte Esterase (NEGATIVE) 09/16/17 09/17/17 09/17/17 Range/Units 22:48 07:30 08:15 WBC 12.9 H (4.2-12.2) K/uL Hgb 10.7 L (11.6-16.0) gm/dl Hct 33.0 L (35.0-47.0) % MPV 10.5 H (7.4-10.4) fl Neutrophils % (47-80) % Band Neutrophils % (0-5) % Lymphocytes 11.0 L (16-45) % Sodium (136-145) mmol/L Anion Gap (7-16) Creatinine (0.5-0.9) mg/dL POC Glucose 140 H 113 H (70-110) mg/dL Random Glucose (74-109) mg/dL Lactic Acid (0.5-2.2) mmol/L Calcium (8.8-10.2) mg/dL AST (10.0-35.0) U/L Total Protein (6.6-8.7) g/dL Urine Nitrite (NEGATIVE) Ur Leukocyte Esterase (NEGATIVE) 09/17/17 09/17/17 09/17/17 Range/Units 08:15 11:30 21:46 WBC (4.2-12.2) K/uL Hgb (11.6-16.0) gm/dl Hct (35.0-47.0) % MPV (7.4-10.4) fl Neutrophils % (47-80) % Band Neutrophils % (0-5) % Lymphocytes (16-45) % Sodium (136-145) mmol/L Anion Gap (7-16) Creatinine (0.5-0.9) mg/dL POC Glucose 135 H 132 H (70-110) mg/dL Random Glucose 124 H (74-109) mg/dL Lactic Acid (0.5-2.2) mmol/L Calcium (8.8-10.2) mg/dL AST (10.0-35.0) U/L Total Protein (6.6-8.7) g/dL Urine Nitrite (NEGATIVE) Ur Leukocyte Esterase (NEGATIVE) 09/18/17 09/18/17 Range/Units 09:38 09:38 WBC (4.2-12.2) K/uL Hgb 10.6 L (11.6-16.0) gm/dl Hct 32.7 L (35.0-47.0) % MPV 10.6 H (7.4-10.4) fl Neutrophils % (47-80) % Band Neutrophils % (0-5) % Lymphocytes (16-45) % Sodium (136-145) mmol/L Anion Gap (7-16) Creatinine (0.5-0.9) mg/dL POC Glucose (70-110) mg/dL Random Glucose 173 H (74-109) mg/dL Lactic Acid (0.5-2.2) mmol/L Calcium 8.5 L (8.8-10.2) mg/dL AST (10.0-35.0) U/L Total Protein (6.6-8.7) g/dL Urine Nitrite (NEGATIVE) Ur Leukocyte Esterase (NEGATIVE) Condition at Discharge: (2) Stable Discharge Medications - Discharge Medications Prescriptions: Cephalexin [Keflex] 500 mg PO BID 10 Days #20 cap Home Medications: Ambulatory Orders Aspirin [Aspirin EC] 81 mg PO DAILY 09/15/17 [Last Taken Unknown] Fenofibrate Nanocrystallized [Tricor] 145 mg PO DAILY 09/15/17 [Last Taken Unknown] Hydrochlorothiazide [Hctz] 25 mg PO DAILY 09/15/17 [Last Taken Unknown] Metformin HCl [Metformin HCl ER] 1,000 mg PO DAILY 09/15/17 [Last Taken Unknown] Metoprolol Succinate [Toprol Xl] 50 mg PO DAILY 09/15/17 [Last Taken Unknown] [place]-3 Fatty Acids [[place]-3] 1,000 mg PO DAILY 09/15/17 [Last Taken Unknown] Simvastatin [Zocor] 10 mg PO QHS 09/15/17 [Last Taken Unknown] Cephalexin [Keflex] 500 mg PO BID 10 Days #20 cap 09/18/17 [Last Taken Unknown] Discharge Plan - Discharge Instructions Activity at Discharge: Increase Activity as Tolerated Diet at Discharge: Diabetic Diet Additional Instructions: Appointment jim been scheduled with your primary care physician Dr. Brown on September 28 at 10AM. If you have a return of fever, chills, or cloudy urine you need to be seen immediately. By a provider at [facility]'s office, urgent care or ER. Your urine infection was severe, take your Keflex 500mg twice a day. This may cause diarrhea. Continue to have good oral intake, making urine every 3-4 hours to continue to flush out the rest of the infection. Quality Measures - Quality Measures Quality Measures: Advance Directives, Documentation of Current Medications in Medical Record, Elder Maltreatment Screen and Follow-Up Plan, Screening for High Blood Pressure and F/U Documented - Current Medications Quality Measure: Measure #130: Documentation of Current Medications Documentation of Current Medications: <Current Medications Documented/Reviewed> [G8427] - Blood Pressure Screening Quality Measure: Screening for High Blood Pressure and Follow-Up Documented Does Patient Have Any of the Following: Active Dx of HTN Blood Pressure Classification: Pre-Hypertensive BP Reading Systolic Measurement: 148 Diastolic Measurement: 82 Screening for High Blood Pressure: Patient Exclusion, Hx of HTN [G9744] Pre-Hypertensive Follow-up Interventions: Referral to alternative/primary care provider. - Advance Directives Quality Measure: Measure #47: Care Plan Advance Directives Established: No Advance Directives Information Provided To Patient: No Advance Directives on File: No Living Will: No Power of Cupola Worker: No Advance Care Planning: <Care Plan/Decision Maker Not Decided; Discussed & Documented> [1124F] - Elder Abuse Suspicion Index Screening: Elder Abuse Suspicion Index Screening Rely on people for bathing, dressing, shopping, banking, etc: No Prevented from getting food, clothes, medication, etc: No Made to feel shamed or threatened by someone: No Forced to sign papers or use money against will: No Feel afraid, touched in ways not wanted or hurt physically: No Poor eye contact, withdrawn, malnourished, cuts or bruises: No Screening Result: Negative result EASI Reference Information: Bob TENA, Geovanna C, Emanuel D, Prashanth Owens.Development and validation of a tool to assist physicians identification of elder abuse: The Elder Abuse Suspicion Index (EASI ). Journal of Elder Abuse and Neglect, 2008; 20 (3): 276-300. - Elder Maltreatment Screen Quality Measures: Elder Maltreatment Screen and Follow-Up Plan Elder Maltreatment Screen: <Negative, No Follow-Up Plan Required> [Y5041]
--- NOTE | 2017-09-18 16:09 | RADIOLOGY REPORT ---
DATE: 09/16/2017 EXAM: TWO-VIEW, CHEST. HISTORY: Difficulty breathing. TECHNIQUE: Frontal and lateral views of the chest were performed. FINDINGS: Heart size is normal. No pulmonary vasculature congestion. No infiltrate or pleural effusion. The osseous structures demonstrate mild degenerative change of the shoulder girdles. IMPRESSION: NO ACUTE DISEASE PROCESS. JOB NUMBER: [id number] MTDD
== END 2017-09-18 11:24 | disposition home or self-care (01) | DRG 194 ==
LOC: ER 21:52 → MEDSURG 09-16 00:36
PROVIDERS: ADMIT Internal Medicine; ATTEND Internal Medicine
DX: J18.9 Pneumonia, unspecified organism (principal); R50.9 Fever, unspecified; N12 Tubulo-interstitial nephritis, not specified as acute or chronic; E87.2 Acidosis; N39.0 Urinary tract infection, site not specified; Z78.9 Other specified health status; I10 Essential (primary) hypertension; E78.5 Hyperlipidemia, unspecified; E11.9 Type 2 diabetes mellitus without complications; Z79.4 Long term (current) use of insulin
CPT/HCPCS: 36416; 71046; 80048; 80053; 81001; 82948; 83605; 85025; 85027; 85651; 87400; 87880; 96365; 99223; 99233; 99239; 99285; J1650